=== PATIENT | female | born 1975 | race Caucasian/White ===

== ENCOUNTER 2017-08-14 17:47 | Emergency (ER) | payer OTHER ==
[~2017-08-14] VITALS: Ht 147.3 cm; Wt 47.6 kg
[2017-08-14 18:17] VITALS: BP 134/92
--- NOTE | 2017-08-14 19:10 | NUR ---
RECEIVED REPRT FROM RENEA KRISHNAN.
--- NOTE | 2017-08-14 20:06 | NUR ---
PT TAKEN TO RADIOLOGY
--- NOTE | 2017-08-14 20:12 | NUR ---
PT RETURN FROM XRAY
[2017-08-14 21:18] VITALS: BP 134/92
--- NOTE | 2017-08-14 21:18 | NUR ---
Patient discharged with v/s stable. Written and verbal after care instructions given and explained. Patient alert, oriented and verbalized understanding of instructions. Ambulatory with steady gait. All questions addressed prior to discharge. ID band removed. Patient advised to follow up with PMD. Rx of VENTOLIN given. Patient educated on indication of medication including possible reaction and side effects. Opportunity to ask questions provided and answered.
== END 2017-08-14 21:18 | disposition home or self-care (01) ==
LOC: MED 17:47
DX: R06.02 Shortness of breath (principal)
CPT/HCPCS: 71046; 99284

== ENCOUNTER 2018-04-10 11:26 | Emergency (ER) | payer OTHER ==
[~2018-04-10] VITALS: Ht 149.9 cm; Wt 51.4 kg
[2018-04-10 11:40] VITALS: BP 114/102
[2018-04-10] MEDS ORDERED: IBUPROFEN 400 MG TAB PO ONE (12:05)
[2018-04-10 12:49] VITALS: BP 109/71
== END 2018-04-10 12:48 | disposition home or self-care (01) ==
LOC: MED 11:26
DX: N39.0 Urinary tract infection, site not specified (principal); R03.0 Elevated blood-pressure reading, without diagnosis of hypertension; R51 Headache; R42 Dizziness and giddiness; J45.909 Unspecified asthma, uncomplicated
CPT/HCPCS: 81002; 81025; 99283

== ENCOUNTER 2019-03-31 12:32 | Emergency (ER) | payer MEDICAID, OTHER ==
[~2019-03-31] VITALS: Ht 149.9 cm; Wt 51.7 kg
--- NOTE | 2019-03-31 12:38 | NUR ---
Patient ambulated to bed 9. RN evaluating patient at bedside.
[2019-03-31 12:44] VITALS: BP 140/94
--- NOTE | 2019-03-31 12:44 | NUR ---
PT BIB SELF C/O SOB X LAST NIGHT. PT REPORTS HER HANDS GOT SHAKEY AND THEN SHE BECAME SOB. RR EVEN AND NON-LABORED, O2 SAT AT 100% ON RA, LUNG SOUNDS CLEAR THROUGHOUT. -COUGH, -N/V, NO FEVER. PT REPORTS DIZZINESS AND CONSTANT HEADACHE AT 7/10. VSS. ER MD TO SEE PT. MEDHX:DENIES RX:DENIES
[2019-03-31] MEDS ORDERED: ACETAMINOPHEN EXTRA STRENGTH 500 MG TAB PO ONE (14:00)
[2019-03-31 14:35] LABS: BASOPHILS % (AUTO) 0.4 % (0.0-2.0); EOSINOPHILS % (AUTO) 0.3 % (0.0-4.0); LYMPHOCYTES % (AUTO) 41.7 % (20.5-51.1); MEAN CORPUSCULAR HEMOGLOBIN 32 pg (27-31); MEAN CORPUSCULAR HGB CONC 33 g/dL (33-37); MONOCYTES # (AUTO) 0.4 K/uL (0.8-1.0); MONOCYTES % (AUTO) 5.7 % (1.7-9.3); NEUTROPHILS # (AUTO) 3.7 K/uL (1.8-7.7); NEUTROPHILS % (AUTO) 51.9 % (42.2-75.2); PLATELET COUNT (AUTO) 280 K/uL (140-450); RED CELL DISTRIBUTION WIDTH 13.2 % (11.6-13.7); WHITE BLOOD COUNT (AUTO) 7.1 K/uL (4.8-10.8)
[2019-03-31 14:40] LABS: ANION GAP 11.4 (8-16); CARBON DIOXIDE 27.2 mmol/L (21-32); CREATININE 0.6 mg/dL (0.6-1.3); POTASSIUM 3.6 mmol/L (3.5-5.1)
[2019-03-31 14:45] LABS: ALBUMIN 3.9 g/dL (3.4-5.0); TOTAL BILIRUBIN 0.6 mg/dL (0.0-1.0)
[2019-03-31 16:45] VITALS: BP 103/68
--- NOTE | 2019-03-31 16:45 | NUR ---
Patient discharged with v/s stable. Written and verbal after care instructions given and explained. Patient verbalized understanding. Ambulatory with steady gait. All questions addressed prior to discharge. Advised to follow up with PMD.
== END 2019-03-31 16:45 | disposition home or self-care (01) ==
LOC: MED 12:32
DX: R07.89 Other chest pain (principal); R42 Dizziness and giddiness; I10 Essential (primary) hypertension; R53.1 Weakness; J45.909 Unspecified asthma, uncomplicated
CPT/HCPCS: 36415; 71045; 80053; 81002; 81025; 83880; 84443; 84484; 85025; 85379; 85610; 85730; 99284; Q0092; 93005